=== PATIENT | male | born 1970 | race Caucasian/White ===

== ENCOUNTER 2023-07-30 08:31 | Emergency (ER) | payer BC, SELFPAY ==
[2023-07-30 08:39] VITALS: BP 152/101; PULSE 86; RESP 18; TEMP 36.3; O2SAT 96; BMI 37.3
--- NOTE | 2023-07-30 09:00 | ED.GENADULT ---
HPI - General Adult General Chief complaint: GI Bleed Stated complaint: bleeding hemorrhoid Time Seen by Provider: 07/30/23 08:34 Source: patient Mode of arrival: ambulatory Limitations: no limitations History of Present Illness HPI narrative: 53-year-old male coming in today complaining of rectal bleeding. Patient believes that he developed a hemorrhoid about 1 week ago. Had pain for a few days, pain has subsided. However he went to wipe after a bowel movement yesterday and noticed blood on the toilet paper, there was no blood in the toilet. Bowel movements are regular, he does not feel that he has to strain when he has bowel movements. He states that he takes no medications and has no significant past medical history. Related Data Home Medications Medication Instructions Recorded Confirmed No Known Home Medications 07/30/23 07/30/23 Allergies Allergy/AdvReac Type Severity Reaction Status Date / Time No Known Drug Allergies Allergy Verified 07/30/23 08:44 Review of Systems Status of ROS: Reports: 10 or more systems reviewed and unremarkable except as noted in History and below Exam Narrative: Exam Narrative: Overweight, well-developed patient in no acute distress. Alert and oriented. Answers questions appropriately. Mood and affect are appropriate. Thoughts are goal oriented and rational. No tangential or magical thinking noted. Patient speaks in full sentences without needing to catch his breath. HEENT: Normocephalic atraumatic. Pupils are equally round reactive to light. Extraocular muscles are intact. Conjunctivae are moist without any icterus noted. Moist mucous membranes. Skin: Well perfused without any obvious rashes. Abdomen: Protuberant and soft. Normal bowel sounds. Rectal exam: Patient does have a moderate-size thrombosed hemorrhoid. The surface of the hemorrhoid is irritated and appears to have been recently bleeding, no recent bleed. Rectal exam reveals normal tone and no masses. Const: Vital Signs, click to edit/add: Vital Signs - 24 hr 07/30/23 08:39 Temperature 97.4 F L Pulse Rate [Pulse Oximeter] 86 Respiratory Rate 18 Blood Pressure [Ri ght Upper Arm] 152/101 H Pulse Oximetry 96 Oxygen Delivery Me thod Room Air Course Vital Signs Vital signs: Initial Vital Signs Temperature 97.4 F L 07/30/23 08:39 Temperature Source Temporal Artery Scan 07/30/23 08:39 Pulse Rate 86 07/30/23 08:39 Respiratory Rate 18 07/30/23 08:39 Blood Pressure 152/101 H 07/30/23 08:39 Blood Pressure Mean 118 H 07/30/23 08:39 Blood Pressure Position Sitting 07/30/23 08:39 Pulse Oximetry 96 07/30/23 08:39 Oxygen Delivery Method Room Air 07/30/23 08:39 Vital Signs Temperature 97.4 F L 07/30/23 08:39 Pulse Rate 86 07/30/23 08:39 Respiratory Rate 18 07/30/23 08:39 Blood Pressure 152/101 H 07/30/23 08:39 Pulse Oximetry 96 07/30/23 08:39 Oxygen Delivery Method Room Air 07/30/23 08:39 Temperature 97.4 F L 07/30/23 08:39 Pulse Rate 86 07/30/23 08:39 Respiratory Rate 18 07/30/23 08:39 Blood Pressure 152/101 H 07/30/23 08:39 Pulse Oximetry 96 07/30/23 08:39 Oxygen Delivery Method Room Air 07/30/23 08:39 Medical Decision Making MDM Narrative Medical decision making narrative: 53-year-old male, bleeding external hemorrhoid. We discussed symptomatic treatment and follow-up. Discharge Plan Discharge Clinical Impression: Bleeding external hemorrhoids, Hemorrhoids Patient Disposition: Home, Self-Care Condition: Stable Additional Instructions: At this time, you should be taking a regular stool softener. This can be something like Dulcolax, purchased [id number]. Also recommend daily MiraLax. Okay to continue hemorrhoid pads and the preparation H as needed. Recommend you not white after having bowel movements. Instead use water to clean the area and pat dry. Follow-up with your primary care provider in 1 week. Prescriptions: No Action No Known Home Medications Follow Up/Referrals: Padmini Thompson MD [Primary Care Provider] - Stand Alone Forms: [employer] Info Instructions
== END 2023-07-30 09:19 | disposition home or self-care (01) ==
LOC: ED 09:05
PROVIDERS: Emergency Provider Family Medicine; PCP Family Medicine
DX: K64.4 Residual hemorrhoidal skin tags (principal)
CPT/HCPCS: 99282; 99283